=== PATIENT | male | born 1980 | race Two or more races ===

== ENCOUNTER 2025-08-31 08:12 | Emergency (ER) | payer OTHER ==
[~2025-08-31] VITALS: Ht 190.5 cm; Wt 170.1 kg
[2025-08-31 08:29] VITALS: BP 116/75; O2SAT 97
[2025-08-31] MEDS ORDERED: DEXAMETHASONE SODIUM PHOSPHATE 4 MG/ML VIAL IM STA (09:04)
[2025-08-31] MEDS ORDERED: BENZONATATE 200 MG CAPSULE PO ONE (09:15)
[2025-08-31] MEDS ORDERED: LORATADINE 10 MG TABLET PO ONE (09:15)
[2025-08-31] MEDS ORDERED: DEXAMETHASONE SODIUM PHOSPHATE 4 MG/ML VIAL ONE (09:35)
[2025-08-31 10:03] LABS: BASO % 1.2 % (0.1-1.2); EOS # 0.17 (0.04-0.54); EOS % 4.0 % (0.7-7.0); LYMPH # 1.18 (1.18-3.74); LYMPH % 27.5 % (19.3-53.1); MEAN PLATELET VOLUME 9.60 fl (9.4-12.4); MONO # 0.46 (0.24-0.82); MONO % 10.7 % (4.7-12.5); NEUT # 2.42 (1.56-6.13); NEUT % 56.4 % (34.0-71.1); RED CELL DISTRIBUTION WIDTH 13.2 % (11.6-14.4)
[2025-08-31 11:10] LABS: COVID-19 AG NEGATIVE (NEGATIVE)
[2025-08-31] MEDS ORDERED: DELSYM30 MG/5 M1 PO (13:03)
[2025-08-31] MEDS ORDERED: AZITHROMYCIN500 MG PO (13:03)
== END 2025-08-31 14:40 | disposition home or self-care (01) ==
LOC: ER 08:12
PROVIDERS: General Practice
DX: J06.9 Acute upper respiratory infection, unspecified (principal); Z20.822 Contact with and (suspected) exposure to COVID-19; Z88.6 Allergy status to analgesic agent; Z87.09 Personal history of other diseases of the respiratory system